=== PATIENT | male | born 1960 | race Caucasian/White ===

== ENCOUNTER 2022-12-17 11:16 | Emergency (ER) | payer OTHER ==
[2022-12-17] MEDS ORDERED: Lidocaine 1% 10 ML MDV INJECT ONE (11:43)
== END 2022-12-17 13:36 | disposition home or self-care (01) ==
LOC: JD.ED 11:16
DX: S61.211A Laceration without foreign body of left index finger without damage to nail, initial encounter (principal); I48.91 Unspecified atrial fibrillation; E11.40 Type 2 diabetes mellitus with diabetic neuropathy, unspecified; Z79.84 Long term (current) use of oral hypoglycemic drugs; W26.8XXA Contact with other sharp object(s), not elsewhere classified, initial encounter
CPT/HCPCS: 12002; 73140-26-F1; 73140-F1; 99283; J3490